=== PATIENT | female | born 2000 | race Two or more races ===

== ENCOUNTER 2023-02-21 06:57 | Emergency (ER) | payer SELFPAY ==
[~2023-02-21] VITALS: Ht 152.4 cm; Wt 67.1 kg
[2023-02-21 09:14] VITALS: BP 117/61; PULSE 76; RESP 16; TEMP 98.4; O2SAT 98
[2023-02-21 09:15] LABS: Urine Bacteria NONE SEEN /hpf (None Seen); Urine Blood 2+ /uL (Negative); Urine Clarity Clear (Clear); Urine Color Yellow (Yellow); Urine Mucus FEW (None Seen); Urine Protein, UAD Negative (Negative); Urine Specific Gravity 1.027 (1.001-1.035); Urine Urobilinogen Normal (Negative); Urine WBC 1 /hpf (0 - 5)
[2023-02-21] MEDS ORDERED: CIPR-273 PO (10:50)
[2023-02-23] MEDS ORDERED: CIPR-173 PO (16:00)
[2023-02-23] MEDS ORDERED: AUG875T PO (16:00)
== END 2023-02-21 10:54 | disposition home or self-care (01) ==
LOC: ER 06:57
DX: R30.0 Dysuria (principal)
CPT/HCPCS: 81001; 87086; 87088; 87186